=== PATIENT | male | born 1990 | race Caucasian/White ===

== ENCOUNTER 2018-04-26 22:46 | Emergency (ER) | payer MEDICAID ==
[~2018-04-26] VITALS: Ht 185.4 cm; Wt 79.4 kg
[2018-04-26 23:06] VITALS: BP 124/85
--- NOTE | 2018-04-26 23:13 | NUR ---
CALLED PT IN [place], NO RESPONSE
--- NOTE | 2018-04-26 23:43 | NUR ---
CALLED PT IN [place], NO RESPONSE
--- NOTE | 2018-04-26 23:50 | NUR ---
CALLED PT IN [place], NO RESPONSE
== END 2018-04-26 23:51 | disposition home or self-care (01) ==
LOC: ER 22:53
DX: F15.10 Other stimulant abuse, uncomplicated (principal); Z53.21 Procedure and treatment not carried out due to patient leaving prior to being seen by health care provider
CPT/HCPCS: A4606; Z7610